=== PATIENT | female | born 1955 | race Asian ===

== ENCOUNTER 2021-05-25 11:17 | Outpatient (CLI) | payer OTHER | END 2021-05-25 20:01 | disposition home or self-care (01) | LOC: SMA 11:17 | PROVIDERS: ATTEND General Practice | DX: Z12.31 Encounter for screening mammogram for malignant neoplasm of breast (principal) | CPT/HCPCS: 77067 ==

== ENCOUNTER 2022-07-19 10:10 | Outpatient (CLI) | payer OTHER | END 2022-07-19 19:07 | disposition home or self-care (01) | LOC: SMA 10:10 | PROVIDERS: ATTEND General Practice | DX: Z12.31 Encounter for screening mammogram for malignant neoplasm of breast (principal) | CPT/HCPCS: 77067 ==